=== PATIENT | male | born 1945 | race Caucasian/White ===

== ENCOUNTER → 2022-02-17 10:30 | Outpatient (CLI) | payer MEDICARE, SELFPAY ==
--- NOTE | 2022-02-17 10:34 | DI.RAD.S_ITS ---
PROCEDURE: XR LUMBAR SPINE MIN 4V INDICATIONS: BACK PAIN TECHNIQUE: 5 views of the lumbar spine were acquired, including bilateral oblique views. COMPARISON: None. FINDINGS: Bones: 5 nonrib-bearing vertebrae are present. There is normal bony alignment. No vertebral body compression fractures. No suspicious bony lesions. Disc space narrowing, anterior osteophytes and sclerotic facet joints noted throughout the exam particularly lower lumbar spine. Soft tissues: Overlying bowel gas pattern is normal. No suspicious soft tissue calcifications. Atherosclerotic calcification in the abdominal aorta noted without evidence of aneurysm. Oblique images: No pars defects. IMPRESSION: Degenerative disc disease and arthropathy noted particularly in the lower lumbar spine. Aortic atherosclerosis. Approved by: Efrem Caraballo M.D. on 02/17/2022 at 12:15
== END ==
PROVIDERS: PCP Internal Medicine; Referring Provider Physical Medicine & Rehabilitation; Visit Provider Physical Medicine & Rehabilitation
DX: M51.36 Other intervertebral disc degeneration, lumbar region (principal); M47.816 Spondylosis without myelopathy or radiculopathy, lumbar region; M48.00 Spinal stenosis, site unspecified; I70.0 Atherosclerosis of aorta; M54.9 Dorsalgia, unspecified; Z98.890 Other specified postprocedural states
CPT/HCPCS: 72110; 99215

== ENCOUNTER 2022-08-18 14:26 | Emergency (ER) | payer MEDICARE, SELFPAY ==
[2022-08-18] VITALS (13 sets, daily range): BP systolic 105–148; BP diastolic 54–68; PULSE 72–108; RESP 11–30; O2SAT 95–100; BMI 35.6
--- NOTE | 2022-08-18 14:42 | DI.RAD.S_ITS ---
PROCEDURE: XR CHEST 1V INDICATIONS: chest pain TECHNIQUE: One view of the chest was acquired. COMPARISON: None. FINDINGS: Surgical changes and devices: None. Lungs and pleura: Lungs are clear. No pleural effusions or pneumothorax. Mediastinum: Mediastinal contours appear normal. Heart size is normal. Bones and chest wall: No suspicious bony lesions. Overlying soft tissues appear unremarkable. IMPRESSION: No acute cardiopulmonary process. Dictated by: Michele Cummings M.D. on 08/18/2022 at 14:36 Approved by: Michele Cummings M.D. on 08/18/2022 at 14:36
[2022-08-18 14:52] LABS: INR 1.1 (0.9-1.3); Prothrombin Time 12.9 SECONDS (10.1-12.7)
[2022-08-18 14:54] LABS: PTT Partial Thromboplastin Tim 31 SECONDS (26-36)
[2022-08-18 14:55] LABS: Add Manual Diff / Slide Review NO; Basophils Absolute Auto 100 /uL (0-100); Eosinophils Absolute Auto 400 /uL (0-450); Eosinophils Percent Auto 6.2 % (2-4); Hematocrit 26.5 % (41-53); Hemoglobin 7.8 g/dL (13.5-17.5); Lymphocytes Absolute Auto 1300 /uL (1100-4500); Lymphocytes Percent Auto 21.9 % (25-40); Mean Corpuscular HGB Conc 29.4 % (30-36); Mean Corpuscular Hemoglobin 20.2 PG (26-34); Mean Corpuscular Volume 68.5 fL (80-100); Monocytes Absolute Auto 400 /uL (0-900); Neutrophils Absolute Auto 3900 /uL (1500-7000); Neutrophils Percent Auto 63.9 % (50-75); Platelet Count 308 X10^3/uL (150-400); Red Blood Cell Count 3.87 X10^6/uL (4.5-5.9); Red Cell Distribution Width 19.7 % (11.6-14.8); White Blood Cell Count 6.2 X10^3/uL (4.5-11.0)
[2022-08-18 14:59] LABS: Alanine Aminotransferase 15 IU/L (<50); Albumin 3.7 g/dL (3.5-5.0); Albumin Globulin Ratio 1.3 (1.0-2.8); Alkaline Phosphatase 77 U/L (38-126); Aspartate Aminotransferase 23 IU/L (17-59); BUN Creatinine Ratio 14.5 (6-22); Bilirubin Total 0.5 mg/dL (0.2-1.3); Blood Urea Nitrogen 12 mg/dL (9-20); Calcium 8.4 mg/dL (8.4-10.2); Carbon Dioxide 38 mmol/L (22-32); Chloride 94 mmol/L (98-107); Creatine Kinase 20 U/L (55-170); Estimated Glomerular Filt Rate > 60 mL/min (>60); Globulin 2.9 g/dL (1.7-4.1); Glucose 105 mg/dL (80-110); HEMOLYSIS < 15 (0-50); Lipase 27 U/L (23-300); Magnesium 2.2 mg/dL (1.6-2.3); Potassium 3.1 mmol/L (3.4-5.1); Sodium 137 mmol/L (137-145); Total Protein 6.6 g/dL (6.3-8.2)
[2022-08-18 15:07] LABS: NT-proBNP (BNP-Adult 18+) 204 pg/mL (<450)
[2022-08-18 15:09] LABS: Anisocytosis 1+; Hypochromasia 2+; Target Cells 1+; Troponin I < 0.012 ng/mL (0.01-0.034)
--- NOTE | 2022-08-18 15:23 | ED_ITS ---
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 Patient has become increasingly weak states in the last 2 or 3 weeks he lost the ability to walk to the bathroom they have been calling r[employer]ics for lift assist to have bowel movements and using a urinal. She notes he has been sleeping in a recliner upright, he is had a persistent cough particularly at nighttime with a lot of productive mucus. No fevers or chills noted. states he seems mildly confused gets the year wrong but knows who the president is. She states he is interacting with people fairly regularly but seems to ignore her. She states and he states no chest pain, he is not actively short of breath at rest but states when he tries to move around. He is had falls 5 or 6 times in the last month. He is had increasing swelling slowly over time of his lower extremities. He has some small abrasions and wounds which have been present the whole time but has some new redness. No dysuria, urgency or frequency. No diarrhea constipation he is had normal bowel movements. states he was hospitalized about 4 weeks ago got transfused 3 units because his hemoglobin was less than 8. She states they did not find a source of his anemia. A home health care nurse came today saw him felt he needed Lasix and diuresis and he was sent to the emergency department. notes she stopped his Lasix about 3 days ago as she states it has not seemed to be helpful. He received 80 mg EN route with EMS. Patient is on aspirin, Plavix, isosorbide, iron, Zetia, Zestril, Flomax, 80 mg Lasix daily, uses Symbicort. He is had cardiac stents x3 in 2003, 2006 and 2018. Had a right eye artery occlusion in 2010, COPD stage III on home O2 and recent TIA. He is had any surgery x2 on 1 knee. Quit using tobacco 30 years ago, no alcohol, no illicit. Primary care is Dr. Lu. He has received all of his prior care at [facility]. Related Data Home Medications Medication Instructions Recorded Confirmed albuterol sulfate 90 mcg/actuation 2 puff inhalation Q4-6H 02/17/22 02/17/22 aerosol inhaler aspirin 81 mg tablet,delayed 81 mg PO DAILY 02/17/22 02/17/22 release (Adult Aspirin Regimen) budesonide-formoterol HFA 160 2 puff inhalation BID 02/17/22 02/17/22 mcg-4.5 mcg/actuation aerosol inhaler (Symbicort) clopidogrel 75 mg tablet 75 mg PO DAILY 02/17/22 02/17/22 ezetimibe 10 mg tablet 10 mg PO DAILY 02/17/22 02/17/22 ibuprofen 200 mg capsule 200 mg PO Q6H PRN 02/17/22 02/17/22 isosorbide mononitrate 60 mg ea PO 02/17/22 02/17/22 tablet,extended release 24 hr lisinopril 20 mg tablet 20 mg PO DAILY 02/17/22 02/17/22 nitroglycerin 0.4 mg sublingual 0.4 mg sublingual .PRN 02/17/22 02/17/22 tablet oxycodone 5 mg capsule 5 mg PO BID PRN 02/17/22 02/17/22 ranitidine HCl 150 mg tablet 150 mg PO .PRN 02/17/22 02/17/22 Allergies Allergy/AdvReac Type Severity Reaction Status Date / Time gabapentin Allergy Verified 08/18/22 14:59 hydroxyzine Allergy Verified 08/18/22 14:59 naproxen [From Aleve] Allergy Verified 02/17/22 11:56 tetracycline Allergy Verified 02/17/22 11:56 Iodine Dye Allergy Uncoded 02/17/22 11:56 Review of Systems Review of Systems ROS Unobtainable: All systems reviewed & are unremarkable except as noted in HPI and below Patient History Medical History COPD (chronic obstructive pulmonary disease) Surgical History H/O eye surgery H/O heart surgery History of knee surgery History of lumbar surgery Social History Smoking Status: Former smoker Smoking Status: Former smoker Substance Use Type: does not use Exam Narrative Exam Narrative: GENERAL: Alert and oriented self and location, patient is able to give most history. gives the more detailed history. HEENT: Head normocephalic, atraumatic, EOMI, pupils reactive, face symmetric, moist mucous membranes, patient on nasal cannula. NECK: Supple, full range of motion CARDIOVASCULAR: Regular rate and rhythm without murmurs, rubs or gallops. Positive for JVD. Bilateral lower extremity swelling 2+. Patient has little bit of mild erythema bilaterally. Few small blisters with clear drainage. RESPIRATORY: Breath sounds equal bilaterally, no wheezes, no rhonchi, bilateral crackles. No tachypnea. No accessory muscle use. Patient's speaks in 3-4 words. ABDOMEN: Soft, nontender. Normoactive bowel sounds all 4 quadrants. No guarding or rebound, rigidity, no mass : No CVA tenderness EXTREMITIES: Normal range of motion, no clubbing. Neurovascularly intact NEUROLOGICAL: Cranial nerves II through XII grossly intact. Moving all extremities SKIN: Warm, dry, no petechiae, no rashes or lesions. Decub. Initial Vital Signs Initial Vital Signs: Vital Signs Pulse Rate 85 08/18/22 14:26 Respiratory Rate 20 08/18/22 14:26 Blood Pressure 114/56 L 08/18/22 14:26 Pulse Oximetry 95 08/18/22 14:26 Oxygen Delivery Method Nasal Cannula 08/18/22 14:26 Oxygen Flow Rate 2 08/18/22 14:26 Course Orders Ordered: ED Orders 08/18/22 14:37 BNP [NT-proBNP (BNP-Adult 18+)] Stat Complete Blood Count AUTO DIFF Stat Comprehensive Metabolic Panel Stat Lipase Stat Magnesium Stat PTT Partial Thromboplastin Sohan Stat Prothrombin Time INR Stat Troponin & CK Cardiac Panel Stat 08/18/22 14:42 XR chest 1V Stat EKG-12 Lead Stat 08/18/22 15:10 COVID19 -Nasal RAPID Stat 08/18/22 15:42 US periph venous low extrem bi Stat 08/18/22 15:58 PRBC [Packed Cells] Stat Type and Screen Stat 08/18/22 15:59 UA Complete [Urinalysis and Microscopic] Stat Discontinued Medications Potassium Chloride (Potassium Chloride 20 Meq/15 Ml Udc) 40 meq PO NOW ONE Stop: 08/18/22 15:44 Last Admin: 08/18/22 15:51 Dose: 40 meq Documented By: ANGEL Vital Signs Vital signs: Vital Signs - 8 hr 08/18/22 14:26 08/18/22 14:34 08/18/22 15:00 Pulse Rate 85 91 H 73 Respiratory Rate 20 16 15 Blood Pressure 114/56 L Pulse Oximetry 95 95 96 Oxygen Delivery Method Nasal Cannula Oxygen Flow Rate 2 08/18/22 15:01 08/18/22 15:01 08/18/22 15:30 Pulse Rate 72 90 Respiratory Rate 17 16 Blood Pressure 105/54 L Pulse Oximetry 96 100 Oxygen Delivery Method Nasal Cannula Oxygen Flow Rate 2 08/18/22 15:31 08/18/22 15:31 08/18/22 16:00 Pulse Rate 95 H Respiratory Rate 21 Blood Pressure 136/68 133/65 Pulse Oximetry 100 Oxygen Delivery Method Oxygen Flow Rate 08/18/22 16:00 08/18/22 16:30 08/18/22 16:31 Pulse Rate 83 93 H 108 H Respiratory Rate 11 L 24 26 H Blood Pressure Pulse Oximetry Oxygen Delivery Method Nasal Cannula Oxygen Flow Rate 2 08/18/22 16:31 08/18/22 17:00 08/18/22 17:00 Pulse Rate 93 H Respiratory Rate 23 Blood Pressure 148/65 H 122/58 L Pulse Oximetry Oxygen Delivery Method Nasal Cannula Oxygen Flow Rate 2 08/18/22 17:30 08/18/22 17:30 08/18/22 18:00 Pulse Rate 97 H Respiratory Rate 30 H Blood Pressure 130/58 L 107/56 L Pulse Oximetry Oxygen Delivery Method Oxygen Flow Rate 08/18/22 18:00 08/18/22 18:30 Pulse Rate 92 H 96 H Respiratory Rate 16 Blood Pressure Pulse Oximetry 98 98 Oxygen Delivery Method Room Air Oxygen Flow Rate MDM - SOB/Dyspnea Lab Data 08/18/22 14:37 08/18/22 14:37 Labs: Lab Results 08/18/22 08/18/22 08/18/22 Range/Units 14:37 14:37 14:37 WBC 6.2 (4.5-11.0) X10^3/uL RBC 3.87 L (4.5-5.9) X10^6/uL Hgb 7.8 L (13.5-17.5) g/dL Hct 26.5 L (41-53) % MCV 68.5 L (80-100) fL MCH 20.2 L (26-34) PG MCHC 29.4 L (30-36) % RDW 19.7 H (11.6-14.8) % Plt Count 308 (150-400) X10^3/uL Neut % (Auto) 63.9 (50-75) % Lymph % (Auto) 21.9 L (25-40) % Bull[place] % (Auto) 7.0 (3-14) % Eos % (Auto) 6.2 H (2-4) % Baso % (Auto) 1.0 (0-2) % Neut # (Auto) 3900 (9107-2577) /uL Lymph # (Auto) 1300 (8007-1175) /uL [place] # (Auto) 400 (0-900) /uL Eos # (Auto) 400 (0-450) /uL Baso # (Auto) 100 (0-100) /uL RBC Morphology Not Reportable Hypochromasia 2+ H Anisocytosis 1+ H Target Cells 1+ H PT 12.9 H (10.1-12.7) SECONDS INR 1.1 (0.9-1.3) APTT 31 (26-36) SECONDS Sodium 137 (137-145) mmol/L Potassium 3.1 L (3.4-5.1) mmol/L Chloride 94 L (98-107) mmol/L Carbon Dioxide 38 H (22-32) mmol/L BUN 12 (9-20) mg/dL Creatinine 0.83 (0.66-1.25) mg/dL Estimated GFR > 60 (>60) mL/min BUN/Creatinine Ratio 14.5 (6-22) Glucose 105 (80-110) mg/dL Calcium 8.4 (8.4-10.2) mg/dL Magnesium 2.2 (1.6-2.3) mg/dL Total Bilirubin 0.5 (0.2-1.3) mg/dL AST 23 (17-59) IU/L ALT 15 (<50) IU/L Alkaline Phosphatase 77 (38-126) U/L Total Creatine Kinase 20 L (55-170) U/L CK-MB (CK-2) TNP CK-MB (CK-2) Rel Index TNP Troponin I < 0.012 (0.01-0.034) ng/mL NT-Pro-B Natriuret Pep (<450) pg/mL Total Protein 6.6 (6.3-8.2) g/dL Albumin 3.7 (3.5-5.0) g/dL Globulin 2.9 (1.7-4.1) g/dL Albumin/Globulin Ratio 1.3 (1.0-2.8) Lipase 27 (23-300) U/L Urine Color Urine Appearance Urine pH (4.5-8.0) Ur Specific [place] (1.000-1.035) Urine Protein (Negative) Urine Glucose (UA) (Negative) g/dL Urine Ketones (NEGATIVE) Urine Occult Blood (Negative) Urine Nitrate (Negative) Urine Bilirubin (NEGATIVE) Urine Urobilinogen (0.2) E.U./dL Ur Leukocyte Esterase (NEGATIVE) Urine RBC (0-5/HPF) Urine WBC (0-5/HPF) Ur Squamous Epith Cells (0-5/HPF) Urine Bacteria (None) Ur Culture Indicated? SARS-CoV-2 (PCR) (Negative) Blood Type Antibody Screen Crossmatch 08/18/22 08/18/22 08/18/22 Range/Units 14:37 15:10 15:58 WBC (4.5-11.0) X10^3/uL RBC (4.5-5.9) X10^6/uL Hgb (13.5-17.5) g/dL Hct (41-53) % MCV (80-100) fL MCH (26-34) PG MCHC (30-36) % RDW (11.6-14.8) % Plt Count (150-400) X10^3/uL Neut % (Auto) (50-75) % Lymph % (Auto) (25-40) % Bull[place] % (Auto) (3-14) % Eos % (Auto) (2-4) % Baso % (Auto) (0-2) % Neut # (Auto) (6987-5753) /uL Lymph # (Auto) (9147-5354) /uL Bull[place] # (Auto) (0-900) /uL Eos # (Auto) (0-450) /uL Baso # (Auto) (0-100) /uL RBC Morphology Hypochromasia Anisocytosis Target Cells PT (10.1-12.7) SECONDS INR (0.9-1.3) APTT (26-36) SECONDS Sodium (137-145) mmol/L Potassium (3.4-5.1) mmol/L Chloride (98-107) mmol/L Carbon Dioxide (22-32) mmol/L BUN (9-20) mg/dL Creatinine (0.66-1.25) mg/dL Estimated GFR (>60) mL/min BUN/Creatinine Ratio (6-22) Glucose (80-110) mg/dL Calcium (8.4-10.2) mg/dL Magnesium (1.6-2.3) mg/dL Total Bilirubin (0.2-1.3) mg/dL AST (17-59) IU/L ALT (<50) IU/L Alkaline Phosphatase (38-126) U/L Total Creatine Kinase (55-170) U/L CK-MB (CK-2) CK-MB (CK-2) Rel Index Troponin I (0.01-0.034) ng/mL NT-Pro-B Natriuret Pep 204 (<450) pg/mL Total Protein (6.3-8.2) g/dL Albumin (3.5-5.0) g/dL Globulin (1.7-4.1) g/dL Albumin/Globulin Ratio (1.0-2.8) Lipase (23-300) U/L Urine Color Urine Appearance Urine pH (4.5-8.0) Ur Specific [place] (1.000-1.035) Urine Protein (Negative) Urine Glucose (UA) (Negative) g/dL Urine Ketones (NEGATIVE) Urine Occult Blood (Negative) Urine Nitrate (Negative) Urine Bilirubin (NEGATIVE) Urine Urobilinogen (0.2) E.U./dL Ur Leukocyte Esterase (NEGATIVE) Urine RBC (0-5/HPF) Urine WBC (0-5/HPF) Ur Squamous Epith Cells (0-5/HPF) Urine Bacteria (None) Ur Culture Indicated? SARS-CoV-2 (PCR) Negative (Negative) Blood Type A Positive Antibody Screen Negative Crossmatch See Detail 08/18/22 Range/Units 15:59 WBC (4.5-11.0) X10^3/uL RBC (4.5-5.9) X10^6/uL Hgb (13.5-17.5) g/dL Hct (41-53) % MCV (80-100) fL MCH (26-34) PG MCHC (30-36) % RDW (11.6-14.8) % Plt Count (150-400) X10^3/uL Neut % (Auto) (50-75) % Lymph % (Auto) (25-40) % [place] % (Auto) (3-14) % Eos % (Auto) (2-4) % Baso % (Auto) (0-2) % Neut # (Auto) (7467-4400) /uL Lymph # (Auto) (0184-3482) /uL [place] # (Auto) (0-900) /uL Eos # (Auto) (0-450) /uL Baso # (Auto) (0-100) /uL RBC Morphology Hypochromasia Anisocytosis Target Cells PT (10.1-12.7) SECONDS INR (0.9-1.3) APTT (26-36) SECONDS Sodium (137-145) mmol/L Potassium (3.4-5.1) mmol/L Chloride (98-107) mmol/L Carbon Dioxide (22-32) mmol/L BUN (9-20) mg/dL Creatinine (0.66-1.25) mg/dL Estimated GFR (>60) mL/min BUN/Creatinine Ratio (6-22) Glucose (80-110) mg/dL Calcium (8.4-10.2) mg/dL Magnesium (1.6-2.3) mg/dL Total Bilirubin (0.2-1.3) mg/dL AST (17-59) IU/L ALT (<50) IU/L Alkaline Phosphatase (38-126) U/L Total Creatine Kinase (55-170) U/L CK-MB (CK-2) CK-MB (CK-2) Rel Index Troponin I (0.01-0.034) ng/mL NT-Pro-B Natriuret Pep (<450) pg/mL Total Protein (6.3-8.2) g/dL Albumin (3.5-5.0) g/dL Globulin (1.7-4.1) g/dL Albumin/Globulin Ratio (1.0-2.8) Lipase (23-300) U/L Urine Color Colorless Urine Appearance Clear Urine pH 7.0 (4.5-8.0) Ur Specific [place] 1.010 (1.000-1.035) Urine Protein Negative (Negative) Urine Glucose (UA) Negative (Negative) g/dL Urine Ketones Negative (NEGATIVE) Urine Occult Blood Negative (Negative) Urine Nitrate Negative (Negative) Urine Bilirubin Negative (NEGATIVE) Urine Urobilinogen 0.2 (0.2) E.U./dL Ur Leukocyte Esterase Negative (NEGATIVE) Urine RBC None seen (0-5/HPF) Urine WBC None seen (0-5/HPF) Ur Squamous Epith Cells None seen (0-5/HPF) Urine Bacteria None seen (None) Ur Culture Indicated? Cult not indicated SARS-CoV-2 (PCR) (Negative) Blood Type Antibody Screen Crossmatch Imaging Data Chest x-ray: Radiologist's Impression: [place] [address] XRay Report Signed Patient: Robert Tatum MR#: [id number] : 1945 Acct:[id number] Age/Sex: 77 / M Date of Service: 08/18/22 Loc: ED Accession Number: [id number] ?? Procedure: XR chest 1V Ordering Provider: Ania Curiel D.O. PROCEDURE:? XR CHEST 1V ? INDICATIONS:? chest pain ? TECHNIQUE:? One view of the chest was acquired.? ? COMPARISON:? None. ? FINDINGS:? ? Surgical changes and devices:? None.? ? Lungs and pleura:? Lungs are clear.? No pleural effusions or pneumothorax.? ? Mediastinum:? Mediastinal contours appear normal.? Heart size is normal.? ? Bones and chest wall:? No suspicious bony lesions.? Overlying soft tissues appear unremarkable.? ? IMPRESSION:? No acute cardiopulmonary process. ? ? ? Dictated by: Michele Cummings M.D. on 08/18/2022 at 14:36 ? ? Approved by: Michele Cummings M.D. on 08/18/2022 at 14:36?? ECG Data Attestation: I personally reviewed and interpreted this ECG as follows: Interpretation: Sinus rhythm rate of 73 [place] 208 QRS is [address] elevation patient difficult to see if she has truly P waves but seems fairly regular with occasional PVC so likely sinus. No acute ST changes appreciated. No priors for comparison. MDM Narrative Medical decision making narrative: This is a 77-year-old male with acute on chronic lower extremity swelling, no increasing O2 requirements or hypoxia but has had some mildly increasing confusion, weakness and debility. Patient has also had persistent cough with orthopnea. Symptoms seem most consistent with CHF but BNP is 204, troponins negative, potassium slightly low at 3.1 he is anemic at 7.8 is reported had transfusion of 3 units 4 weeks ago, attempting to get records from [facility] to see what his level was most recently this maybe causing some 3rd spacing. Patient does have crackles on examination and significant swelling of his lower extremities. He is had little to no movement over the past several weeks and a recent hospitalization so DVT ultrasounds were ordered bilaterally as there is some mild erythema as well. He does not appear septic or toxic. He was off of his Lasix for the past 3 days which is likely not helping his symptoms. Case was discussed with Dr. Raygoza the hospitalist. Discussed giving 1 unit packed red blood cells here if has any worsening or decrease in O2 sat or felt not appropriate for discharge to call back for possible admission versus observation. Patient is felt appropriate for likely SNF placement. There is home health care in place as of today. Discussed with patient recommendations from hospitalist would like to transfuse 1 unit, monitor for. Time to CBC havin g additional fluid overload although his BNP and workup from that perspective is overall appropriate. Patient is very clear he does not want admission he does not wish to stay, he does not want transfusion. He would like to return home. He would like to return before it gets dark. Patient's would feel more comfortable with patient being overnight in the hospital but she defers to his choice. We did discuss if he would want intervention for breathing he states that he. But he is adamant he would like to return home. He appears competent and appropriate to make his own decisions at this time and his is supporting him and those decisions. Was recommended to restart his Lasix. Talk with his physician about blood transfusion his notes he was 8.3 or 8.6 when he was discharged from [facility]. We discussed that he likely will not do well at home over the long-term and needs additional help. We discussed home health care may not be adequate. would like to take him home by car, they felt that they can get him into the house with some assistance from friends. They told nursing it is a volunteer [facility]. All questions answered. Discharge Plan Departure Patient Disposition: Home Clinical Impression: Anemia, Weakness Activity Restrictions/Additional Instructions: Please follow-up with your physician. Your hemoglobin today is 7, it is recommended that you have a transfusion as you have elected to return home before that is occurred please discuss with your physician to see if this can be ordered outpatient through in Infusion [facility]. You would probably benefit from a penitentiary or prison facility. Talk with your physician about placement if you are willing. I would recommend restarting your Lasix 40 mg twice daily. Your workup otherwise shows normal renal function, BNP and troponin. Please return for new or worsening symptoms, new chest pain, shortness of breath, increasing swelling, fevers, increasing oxygen requirements, altered mental status, black or bloody stools, persistent vomiting or other new or concerning changes. Prescriptions: No Action isosorbide mononitrate 60 mg tablet extended release 24 hr PO Patient Comments: TAKE ONE TABLET BY MOUTH ONE TIME DAILY aspirin [Adult Aspirin Regimen] 81 mg tablet,delayed release (DR/EC) 81 mg PO DAILY ezetimibe 10 mg tablet 10 mg PO DAILY Patient Comments: TAKE ONE TABLET BY MOUTH ONCE NIGHTLY lisinopril 20 mg tablet 20 mg PO DAILY Patient Comments: TAKE ONE TABLET BY MOUTH ONE TIME DAILY FOR HIGH BLOOD PRESSURE clopidogrel 75 mg tablet 75 mg PO DAILY budesonide-formoterol [Symbicort] 160-4.5 mcg/actuation HFA aerosol inhaler 2 puff inhalation BID nitroglycerin 0.4 mg tablet, sublingual 0.4 mg sublingual .PRN Patient Comments: Place 1 tablet under the tongue every 5 minutes as needed for Chest pain, up to 2 doses, THEN CALL 911 ibuprofen 200 mg capsule 200 mg PO Q6H PRN ranitidine HCl 150 mg tablet 150 mg PO .PRN albuterol sulfate 90 mcg/actuation HFA aerosol inhaler 2 puff inhalation Q4-6H Patient Comments: INHALE 2 PUFFS BY MOUTH EVERY 4 TO 6 HOURS NEEDED FOR WHEEZING OR SHORTNESS OF BREATH, not to exceed 12 puffs per day oxycodone 5 mg capsule 5 mg PO BID PRN Referrals: Gloria Barrett [Primary Care Provider] - Stand Alone Forms: Patient Portal/API
[2022-08-18 15:40] LABS: COVID19 -Nasal RAPID Negative (Negative)
--- NOTE | 2022-08-18 15:42 | DI.US.S_ITS ---
PROCEDURE: US PERIPH VENOUS LOW EXTREM BI INDICATIONS: b/l lower ext swelling, redness, normal bnp TECHNIQUE: Real-time imaging, as well as color and pulse Doppler interrogation, were performed of the deep veins of both legs from the inguinal ligament to the popliteal fossa. COMPARISON: None. FINDINGS: Right: The common femoral, femoral and popliteal veins are normally compressible, and free of intraluminal thrombus. Color and pulse Doppler demonstrate normal phasic intravascular flow. There is normal augmentation response to distal compression maneuver. Left: The common femoral, femoral and popliteal veins are normally compressible, and free of intraluminal thrombus. Color and pulse Doppler demonstrate normal phasic intravascular flow. There is normal augmentation response to distal compression maneuver. IMPRESSION: No DVT. Dictated by: Michele Cummings M.D. on 08/18/2022 at 15:50 Approved by: Michele Cummings M.D. on 08/18/2022 at 15:50
[2022-08-18] MEDS: POTASSIUM CHLORIDE 20 MEQ/15 ML UDC 40 MEQ PO (15:51)
[2022-08-18 16:19] LABS: Appearance Urine UA CLEAR; Bilirubin Urine UA NEGATIVE (NEGATIVE); Glucose Urine UA NEGATIVE (Negative); Ketones Urine UA NEGATIVE (NEGATIVE); Leukocyte Esterase Urine UA NEGATIVE (NEGATIVE); Nitrite Urine UA NEGATIVE (Negative); Occult Blood Urine UA NEGATIVE (Negative); Protein Urine UA NEGATIVE (Negative); Urobilinogen Urine UA 0.2 E.U./dL (0.2)
[2022-08-18 16:27] LABS: Color Urine UA COLORLESS
[2022-08-18 16:28] LABS: Bacteria Urine None Seen; Culture Indicated Urine Cult Not Indicated; RBC Urine None Seen (0-5/HPF); Squamous Epithelial Cell Urine None Seen (0-5/HPF); WBC Urine None Seen (0-5/HPF)
== END 2022-08-18 18:50 | disposition home or self-care (01) ==
PROVIDERS: Emergency Provider Emergency Medicine; PCP Internal Medicine
DX: R53.1 Weakness (principal); D64.9 Anemia, unspecified; R07.9 Chest pain, unspecified; R60.9 Edema, unspecified; R79.89 Other specified abnormal findings of blood chemistry; R06.02 Shortness of breath; Z79.01 Long term (current) use of anticoagulants; Z20.822 Contact with and (suspected) exposure to COVID-19
CPT/HCPCS: 71045; 80053; 81001; 82550; 83690; 83735; 83880; 84484; 85025; 85610; 85730; 86850; 86900; 86901; 87635; 93005; 93010; 93970; 99284; 99285; C9803